=== PATIENT | female | born 1985 | race Caucasian/White ===

== ENCOUNTER 2017-03-30 22:34 | Emergency (ER) | payer MEDICAID ==
[2017-03-30 22:34] VITALS: BMI 38.4
[2017-03-30 22:40] VITALS: BP 127/86; PULSE 100; RESP 20; TEMP 97.7; O2SAT 100
--- NOTE | 2017-03-31 00:55 | C.PDOC ---
History Of Present Illness 31 year old female presents to the ER with a complaint of diffuse urticaria that occurred while eating at a restaurant. Patient is unsure of the cause but has a Hx of similar in the past. 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 Denies SOB, swelling, or wheezing. Time Seen by Provider: 03/30/17 23:41 Chief Complaint (Nursing): Allergic Reaction History Per: Patient History/Exam Limitations: no limitations Onset/Duration Of Symptoms: Hrs Current Symptoms Are (Timing): Still Present Context: Food Possible Cause: Food Associated Symptoms: Skin Rash. denies: Swelling, Other (SOB, Wheezing) Home/EMS Treatment: Benadryl Recent travel outside of the [place]: No Past Medical History Reviewed: Historical Data, Nursing Documentation, Vital Signs Vital Signs: Last Vital Signs Temp 97.7 F 03/30/17 22:36 Pulse 100 H 03/30/17 22:36 Resp 20 03/30/17 22:36 BP 127/86 03/30/17 22:36 Pulse Ox 100 03/31/17 00:56 - Medical History PMH: Anemia Surgical History: Appendectomy Family History: States: Unknown Family Hx - Social History Hx Tobacco Use: No Hx Alcohol Use: Yes Hx Substance Use: No - Immunization History Hx Tetanus Toxoid Vaccination: No Hx Influenza Vaccination: Yes Hx Pneumococcal Vaccination: No Review Of Systems Respiratory: Negative for: Shortness of Breath, Wheezing Skin: Positive for: Rash. Negative for: Other (Swelling) Physical Exam - Physical Exam Appears: Non-toxic, No Acute Distress Skin: Warm, Dry, Rash (Diffuse urticaria) Head: Atraumatic, Normacephalic Eye(s): bilateral: Normal Inspection Oral Mucosa: Moist Tongue: Normal Appearing, No Swelling Lips: Normal Appearing, No Swelling Throat: Normal, No Other (Swelling) Neck: Normal, Supple Chest: Symmetrical, No Tenderness Cardiovascular: Rhythm Regular Respiratory: Normal Breath Sounds, No Accessory Muscle Use, No Rales, No Rhonchi , No Stridor, No Wheezing Neurological/Psych: Oriented x3, Normal Speech ED Course And Treatment O2 Sat by Pulse Oximetry: 100 (Room air) Pulse Ox Interpretation: Normal Progress Note: Pepcid and prednisone administered. On reevaluation, patient shows substantial improvement of urticaria, will discharge home with Rx and instructions to follow up with PMD or return if symptoms worsen. 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 - Scribe Statement The provider has reviewed the documentation as recorded by the Arslanibdior Perez All medical record entries made by the Jan were at my direction and personally dictated by me. I have reviewed the chart and agree that the record accurately reflects my personal performance of the history, physical exam, medical decision making, and the department course for this patient. I have also personally directed, reviewed, and agree with the discharge instructions and disposition.
== END 2017-03-31 01:00 | disposition home or self-care (01) ==
LOC: C.ER 22:34
DX: L50.0 Allergic urticaria (principal)